=== PATIENT | male | born 1955 | race Caucasian/White ===

== ENCOUNTER → 2020-02-08 | Outpatient (CLI) | payer MEDICARE | END | disposition home or self-care (01) | LOC: SPEC 13:06 | PROVIDERS: ATTEND Surgery | DX: L72.9 Follicular cyst of the skin and subcutaneous tissue, unspecified (principal) | CPT/HCPCS: 87070 ==

== ENCOUNTER 2020-04-20 10:01 | Day surgery (SDC) | payer MEDICARE, OTHER ==
[~2020-04-20] VITALS: Ht 175.3 cm; Wt 86.2 kg
[~2020-04-20 10:01] MED LIST: ASCO500C PO; ASPI325T8 PO; CHOL500050 PO; DEXAMETHASONE SOD PHOS 4 MG/ML VIAL ONE; GRAP50CA3 PO; HYDROmorphone 2 MG/ML VIAL IV PRN; IV RINGERS,LACTATED 1000ML 1,000 ML IV SCH; LIDOCAINE 2% PF 5 ML VIAL. ONE; LISI10TA2 PO; METO25TA4 PO; MIDAZOLAM HCL/PF 2 MG/2 ML VIAL. ONE; MORPHINE SULFATE 2 MG/ML VIAL. IV PRN; MULT-245 PO; OMEG1CAP27 PO; ONDANSETRON PF 4 MG/2 ML VIAL. IV PRN; ONDANSETRON PF 4 MG/2 ML VIAL. ONE; PROCHLORPERAZINE 10 MG/2 ML VIAL. IV PRN; PROPOFOL 10 MG/ML (20ML) VIAL. IV ONE; SEVOFLURANE 61 TO 120 MINUTES. IH ONE; SITA100T PO; TURM500C4 PO; UBID50TA PO; ZINC50TA39 PO; [UNRECOGNIZED DRUG - OTHER]; fentaNYL PF VIAL 100 MCG/2 ML VIAL IV PRN; fentaNYL PF VIAL 100 MCG/2 ML VIAL ONE
[2020-04-20] MEDS: INSULIN LISPRO 100 UNIT/ML 3ML VIAL for OP,RR ONLY. SQ PRN ×2 (10:47→14:19)
[2020-04-20] MEDS ORDERED: LIDOCAINE 1%/EPI 1:100,000 20 ML VIAL. ONE (11:52)
[2020-04-20] MEDS ORDERED: PHENYLEPHRINE in 0.9% NACL PF 1 MG/10 ML SYRINGE. IV ONE (12:25)
[2020-04-20] MEDS ORDERED: BUPIVACAINE-EPI 0.5%-1:200000 MPF 30 ML VIAL. ONE (12:44)
[2020-04-20] MEDS ORDERED: ePHEDrine PF IN SALINE 50 MG/10 ML SYRINGE. IV ONE (13:07)
--- NOTE | 2020-04-20 13:40 | PDOC4 ---
Operative Note Operative Note Operative Note: Preoperative Diagnosis: Right scalp cyst, right forearm skin lesion Postoperative Diagnosis: Same Procedure: Excision of right scalp cyst, excision of right forearm skin lesion Surgeon: Arsh Anesthesia: General EBL: 40 mL Specimen: Scalp cyst 3.5 X 2 cm, skin lesion 1 X 1 cm, to pathology Drains: None Complications: None Indication: The patient is a 64-year-old male who presented with a bothersome right scalp cyst that has persistently drained. In addition there is a raised forearm skin lesion. He requests excision of both. The risks of surgery were discussed which include bleeding, infection, recurrence, pain, potential need for additional surgery procedure. He understands and would like to proceed. Description: The patient was taken the operating room and placed supine on the o perating table. General anesthesia was performed. The right scalp and right forearm were then prepped with Betadine and draped in a standard surgical manner. An elliptical incision was made including a portion of the redundant skin overlying the scalp cyst. Sharp dissection was used to mobilize the cyst and the sac from the surrounding tissues. The sac was fully excised and me asured 3-1/2 x 2 cm. The specimen was sent to pathology for evaluation. There was brisk bleeding which was controlled with cautery. Hemostasis was then good. The subcutaneous tissues were approximated with 3-0 Vicryl and skin was closed with 4-0 Monocryl. An elliptical incision was then made around the right forearm skin lesion which measured 1 x 1 cm. Full-thickness excision of the lesion was performed with sharp dissection and the specimen sent to pathology. Hemostasis was achieved with cautery. The skin was reapproximated with 4-0 Monocryl sutures. Steri-Strips and sterile dressings were applied. The patient tolerated the procedure well and sent to the recovery room in stable condition. At the end of the case all counts were correct. CANELO WISDOM MD Apr 20, 2020 13:40
--- NOTE | 2020-04-20 13:42 | DISCH ---
DISCHARGE INSTRUCTIONS Condition on Discharge Condition on Discharge: Stable Activity After Discharge Activity Instructions for Disc: Resume previous activity Wound Incision Care Wound/Incision Care: Other, see below (keep incisions clean and dry X 72 hours, may then shower) Follow-Up Follow up with: Dr Wisdom in 2 weeks, call for appointment [phone] CANELO WISDOM MD Apr 20, 2020 13:42
[2020-04-20] MEDS ORDERED: INSULIN LISPRO 100 UNIT/ML 3ML VIAL for OP,RR ONLY. SQ ONE ×2 (14:00)
[2020-04-20] MEDS ORDERED: HYDROcodone/APAP 5/325MG 1 TAB TABLET PO ONE (14:15)
[2020-04-20 14:37] VITALS: BP 139/78
--- NOTE | 2020-04-24 14:07 | PATHOLOGY ---
[facility] Accession Number: [id number] . 01 Material submitted: . PART A: scalp - SCALP MASS PART B: forearm - RIGHT FOREARM MASS. Modifiers: right . 01 Clinical history: . SCALP CYST . 02 Diagnosis: A. 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 . B. Skin and subcutaneous tissue, right forearm mass: - Seborrheic keratosis, hyperkeratotic type. - Incidental small intradermal nevus. ([facility] 04/24/2020) [facility] 04/24/2020 0916 Local . 02 Comment: There is no evidence of malignancy. ([facility] 04/24/2020) . 02 Electronically signed: . Papito Nevarez MD, Pathologist NPI- [id number] . 01 Gross description: . A. The specimen is received in formalin, labeled "Chuckie Young, scalp mass". Received is an ellipse of pale white skin with attached underlying soft tissue measuring 3.2 x 2.1 x 2.2 cm in greatest dimensions. The surgical margin is inked. Sectioning reveals two unilocular cystic structures measuring 1.5 and 1.7 cm, which have curled into each other. The specimen is submitted representatively in cassettes A1 and A2. . B. The specimen is received in formalin, labeled "Chuckie Young, right forearm mass". Received is an ellipse of skin measuring 1.6 x 0.7 x 0.4 cm in greatest dimensions. The epidermal surface displays a well-circumscribed, raised, flaky and light white lesion measuring 0.5 x 0.3 x 0.1 cm. The surgical margin is inked. The specimen is sectioned into six pieces and entirely submitted in cassettes B1 and B2, with the tips placed in cassette B2. ([facility]; 04/21/2020) [facility] 04/21/2020 1443 Local . 02 Pathologist provided ICD-10: L72.11, L82.1, D22.61 . 02 CPT . 585972, 999333 Specimen Comment: A courtesy copy of this report has been sent to [phone], [phone] Specimen Comment: [id number] Specimen Comment: Report sent to / DR HOYOS Performed at: 01 [facility] [address], [place] [id number] MD Thiago Younger MD Phone: [phone] Performed at: 02 [facility] [address] [place], [place] [id number] MD Papito Nevarez MD Phone: [phone]
== END 2020-04-20 15:00 | disposition home or self-care (01) ==
LOC: SURG 10:01
PROVIDERS: ATTEND Surgery
DX: L72.3 Sebaceous cyst (principal); L82.1 Other seborrheic keratosis; Z20.828 Contact with and (suspected) exposure to other viral communicable diseases; Z88.8 Allergy status to other drugs, medicaments and biological substances; Z79.82 Long term (current) use of aspirin; Z79.899 Other long term (current) drug therapy; Z72.89 Other problems related to lifestyle
CPT/HCPCS: 11401; 11424; 82962; 87426; J0690; J1100; J1815; J2250; J2370; J2405; J2704; J3010; U0003; J3490; A4461